=== PATIENT | female | born 1940 | race Caucasian/White ===

== ENCOUNTER → 2017-05-23 | Outpatient (CLI) | payer OTHER, BC ==
[~2017-05-23] MED LIST: NOR10 PO
== END | disposition home or self-care (01) ==
LOC: RD 10:23
DX: R05 Cough (principal)

== ENCOUNTER 2017-05-28 21:56 | Inpatient (IN) | payer OTHER, BC ==
[~2017-05-28] VITALS: Ht 165.1 cm; Wt 61.5 kg
[2017-05-28 22:03] VITALS: Ht 165.1 cm; Wt 61.5 kg
[2017-05-28 23:00] LABS: PLATELET COUNT 371 x10^3mcL (130-400); RED CELL DISTRIBUTION WIDTH 14.5 % (11.5-14.5)
[2017-05-28 23:11] LABS: CALCIUM 8.4 mg/dL (8.5-10.1); CARBON DIOXIDE 24.6 mmol/L (21-32); CHLORIDE SERUM 92 mmol/L (98-107); CREATININE SERUM 0.9 mg/dL (0.6-1.0); GLUCOSE SERUM 357 mg/dL (74-106); POTASSIUM SERUM 5.2 mmol/L (3.5-5.1); SODIUM SERUM 127 mmol/L (136-145)
[2017-05-28 23:16] LABS: ALBUMIN 3.4 g/dL (3.4-5.0); ALKALINE PHOSPHATASE 124 U/L (46-116); ALT/SGPT 155 U/L (14-59); AST/SGOT 155 U/L (15-37); BILIRUBIN TOTAL 0.3 mg/dL (0.20-1.00); HDL CHOLESTEROL 45 mg/dL (40-60); TOTAL PROTEIN, SERUM 6.5 g/dL (6.4-8.2)
[2017-05-28 23:17] LABS: CHOLESTEROL 133 mg/dL (<200)
[2017-05-28 23:31] LABS: BAND NEUTROPHIL 2 % (0-10); BASOPHIL 0 % (0-2); MONOCYTE 6 % (0-7); SEGMENTED NEUTROPHILS 74 % (37-75)
[2017-05-28 23:32] LABS: rbc morphology (normal/abnorm) ABNORMAL (NORMAL)
[2017-05-29] VITALS (14 sets, daily range): BP systolic 109–143; BP diastolic 52–95
[2017-05-29 02:24] LABS: MAGNESIUM 2.3 mg/dL (1.8-2.4)
[2017-05-29 02:24] LABS: UA SPECIFIC GRAVITY 1.015 (1.005-1.035); microscopic required? YES; urine erythrocyte NEGATIVE (NEGATIVE)
[2017-05-29 02:28] LABS: FREE T4 1.26 ng/dL (0.76-1.46); FREE THYROXINE INDEX 2.5 ug/dL (1.4-4.5); T4(THYROXINE) 6.7 ug/dL (4.7-13.3)
[2017-05-29] MEDS ORDERED: LISINOPRIL10 MG PO (02:53)
[2017-05-29] MEDS ORDERED: METOPROLOL TART25 M1 PO (02:54)
[2017-05-29 03:01] LABS: CHOLESTEROL/HDL RATIO 2.9
[2017-05-29 04:08] LABS: T3 TOTAL 0.75 ng/mL
[2017-05-29 07:31] LABS: PLATELET COUNT 317 x10^3mcL (130-400)
[2017-05-29 07:39] LABS: RED CELL DISTRIBUTION WIDTH 14.9 % (11.5-14.5)
[2017-05-29 08:02] LABS: CALCIUM 8.2 mg/dL (8.5-10.1); CHLORIDE SERUM 98 mmol/L (98-107); CREATININE SERUM 0.8 mg/dL (0.6-1.0); GLUCOSE SERUM 151 mg/dL (74-106); POTASSIUM SERUM 4.2 mmol/L (3.5-5.1); SODIUM SERUM 135 mmol/L (136-145)
[2017-05-29 12:41] LABS: BAND NEUTROPHIL 4 % (0-10); BASOPHIL 0 % (0-2); MONOCYTE 5 % (0-7); SEGMENTED NEUTROPHILS 88 % (37-75)
[2017-05-29 12:43] LABS: PLATELET MORPHOLOGY PLATELETS NORMAL; acanthocyte (spur cell) 1+; burr cell (echinocyte) 1+; rbc morphology (normal/abnorm) ABNORMAL (NORMAL)
[2017-05-30] VITALS (10 sets, daily range): BP systolic 104–138; BP diastolic 45–71
[2017-05-30 03:07] LABS: PLATELET COUNT 285 x10^3mcL (130-400)
[2017-05-30 03:10] LABS: BASOPHIL % 0 % (0-2); RED CELL DISTRIBUTION WIDTH 14.7 % (11.5-14.5)
[2017-05-30 03:36] LABS: CHLORIDE SERUM 97 mmol/L (98-107); CREATININE SERUM 0.6 mg/dL (0.6-1.0); GLUCOSE SERUM 153 mg/dL (74-106); MAGNESIUM 1.8 mg/dL (1.8-2.4); POTASSIUM SERUM 3.3 mmol/L (3.5-5.1); SODIUM SERUM 135 mmol/L (136-145)
[2017-05-30] MEDS ORDERED: LEV500 PO (16:04)
[2017-05-30] MEDS ORDERED: CLE150 PO (16:05)
[2017-05-30] MEDS ORDERED: IPRATROPIUM BROM3 M2 HHN (16:15)
[2017-05-30] MEDS ORDERED: METOPROLOL TART25 M1 PO (16:17)
[2017-05-30] MEDS ORDERED: ATORVASTATIN CA40 M1 PO (16:17)
[2017-05-30] MEDS ORDERED: ZES10 PO (16:18)
[2017-05-30] MEDS ORDERED: BAY PO (16:19)
[2017-05-30] MEDS ORDERED: L20I IV (16:19)
[2017-05-30] MEDS ORDERED: PRE20 PO ×2 (16:20→16:21)
[2017-05-30] MEDS ORDERED: PRE10 PO ×2 (16:20→16:21)
[2017-05-30] MEDS ORDERED: PRE5 PO (16:20)
[2017-05-30] MEDS ORDERED: NOR10 PO (16:53)
== END 2017-05-30 18:54 | disposition hospice, home (50) | DRG 871 ==
LOC: ED 21:56 → IC 05-29 01:38
PROVIDERS: Emergency Medicine; Family Medicine
PROC: 0BH17EZ Insertion of Endotracheal Airway into Trachea, Via Natural or Artificial Opening (ICD-10-PCS; principal; 2017-05-29)
PROC: 5A1945Z Respiratory Ventilation, 24-96 Consecutive Hours (ICD-10-PCS; 2017-05-29)
DX: A41.9 Sepsis, unspecified organism (principal); J69.0 Pneumonitis due to inhalation of food and vomit; I50.43 Acute on chronic combined systolic (congestive) and diastolic (congestive) heart failure; J96.00 Acute respiratory failure, unspecified whether with hypoxia or hypercapnia; N17.0 Acute kidney failure with tubular necrosis; R65.21 Severe sepsis with septic shock; I21.4 Non-ST elevation (NSTEMI) myocardial infarction; E87.1 Hypo-osmolality and hyponatremia; Z68.1 Body mass index [BMI] 19.9 or less, adult; E11.65 Type 2 diabetes mellitus with hyperglycemia; E87.5 Hyperkalemia; J44.9 Chronic obstructive pulmonary disease, unspecified; R74.0 Nonspecific elevation of levels of transaminase and lactic acid dehydrogenase [LDH]; D64.9 Anemia, unspecified; E87.8 Other disorders of electrolyte and fluid balance, not elsewhere classified; Z51.5 Encounter for palliative care; E11.51 Type 2 diabetes mellitus with diabetic peripheral angiopathy without gangrene; E83.39 Other disorders of phosphorus metabolism; Z66 Do not resuscitate; Z79.899 Other long term (current) drug therapy; Z88.0 Allergy status to penicillin; Z88.2 Allergy status to sulfonamides; Z91.041 Radiographic dye allergy status; Z82.49 Family history of ischemic heart disease and other diseases of the circulatory system; Z87.891 Personal history of nicotine dependence
CPT/HCPCS: 36600; 82962; 83880; 84439; 87804; A4628; J1644; J1940; J1956; J2704; J2920; J2930; J3490; J7030; J7512; J7620; Q0092